=== PATIENT | female | born 1985 | race African-American/Black ===

== ENCOUNTER 2016-10-12 18:53 | Emergency (ER) | payer OTHER ==
[~2016-10-12 18:53] MED LIST: ACYCLOVIR400 MG PO; ALBUTEROL MININEB NEB; ALBUTEROL0.83 MG/ML IH; ALBUTEROL17 GM; ALBUTEROL17 GM INH; ALBUTEROL17 GM PO; ALBUTEROL2.5 MG/0.5; AZITHROMYCIN500 MG PO; BENZONATATE PO; CLARITIN10 M3 PO; CLEOCIN; CLEOCIN PO; DOCU SOFT100 M1 PO; ERY-TAB500 MG PO; FOLIC ACID PO; IRON325 ( 65 ) PO; LORTAB 5-325 M1 EACH; LORTAB 5/500 TA1 TA1 PO; MEDROL PO; METHOTREXATE25 MG/M3 PO; NAPROSYN250 M1 PO; NAPROXEN375 M1; NEURONTIN300 MG PO; NO MEDICATIONS; PREDNISONE; PREDNISONE PO; PREDNISONE10 MG/DOSE PO; PRENATAL MULITV1 TAB PO; PROMETHAZINE D118 ML PO; PROVENTIL INH0.5 ML; ROBITUSSIN A-C10 ML PO; TRAMADOL HCL50 M2 PO; TYLENOL #3 PO; VICODIN 5/1 TAB 5/50 PO; VOLTAREN75 MG PO; ZITHROMAX; ZITHROMAX PO; ZOFRAN
[2016-10-12] MEDS ORDERED: SINGULAIR (19:04)
== END 2016-10-12 20:19 | disposition home or self-care (01) ==
LOC: SED 18:53
DX: J45.901 Unspecified asthma with (acute) exacerbation (principal); F17.200 Nicotine dependence, unspecified, uncomplicated
CPT/HCPCS: 87651; 94640; 99283